=== PATIENT | male | born 1940 | race Caucasian/White ===

== ENCOUNTER 2016-11-28 15:44 | Inpatient (IN) ==
[2016-11-28] MEDS ORDERED: NORCO-5 PO PRN (16:42)
[2016-11-28] MEDS ORDERED: ZOFRAN IV PRN (16:42)
[2016-11-28] MEDS ORDERED: TYLENOL PO PRN (16:42)
[2016-11-28] MEDS: LOVENOX SUBQ SCH (18:04)
[2016-11-28] MEDS: SOLU-MEDROL IV SCH ×2 (18:04→23:08)
[2016-11-28] MEDS: ROCEPHIN 1 GM/NS 1 GM/50 ML IVPB IV SCH (18:04)
[2016-11-28 18:24] LABS: MANUAL DIFF NEEDED? NO
[2016-11-28] MEDS: HUMULIN R SUBQ SCH ×2 (18:32→23:14)
[2016-11-28] MEDS: BENTYL PO SCH (18:32)
[2016-11-28 18:49] LABS: CALCIUM 8.8 mg/dL (8.8-10.2); POTASSIUM 4.5 mmol/L (3.5-5.1)
[2016-11-28] MEDS: ZITHROMAX 500 MG/NS 500 MG/250 ML IVPB IV SCH (18:56)
[2016-11-28 19:03] LABS: BASO% 0.2 % (0.0-0.8); EOS# 0.01 X1000 (0.0-0.7); EOS% 0.2 % (0.0-10.0); HEMATOCRIT 38.4 % (42.0-52.0); HEMOGLOBIN 13.9 g/dL (14.0-18.0); IMM GRAN# 0.03 X1000 (0.0-0.04); IMM GRAN% 0.5 % (0.0-0.5); LYMPH# 1.21 X1000 (1.2-3.4); LYMPH% 18.4 % (20.5-51.1); MCH 32.6 PG (27-31); MCHC 36.2 g/dL (33-37); MCV 90.1 FL (81-99); MONO# 0.57 X1000 (0.11-0.59); MONO% 8.7 % (1.7-9.3); PLT 183 X1000 (130-400); RBC 4.26 XMIL (4.7-6.1)
[2016-11-28] MEDS: SYMBICORT 160/4.5 MICROGM INHALER INH SCH (19:28)
[2016-11-28] MEDS: DUONEB (A & A) INH SCH ×2 (19:28→22:03)
--- NOTE | 2016-11-28 19:57 | HISTORY AND PHYSICAL ---
CHIEF COMPLAINT: Shortness of breath and cough. HISTORY OF PRESENT ILLNESS: Mr. Elroy Candelaria is a 76-year-old gentleman, with history of ischemic heart disease, essential hypertension, obstructive sleep apnea, and gastroesophageal reflux disease, type 2 brf-[id number] diabetes mellitus, anxiety disorder, chronic obstructive pulmonary disease, and history of a radical nephrectomy, who is well known to me. I saw him on 11/23/2016 and treated him for an acute bronchitis in association with an acute chronic obstructive pulmonary disease exacerbation. We treated him with a Z-David, Medrol Dosepak, and Proventil MDI 2 puffs q.6 hours p.r.n. His chest x-ray was clear. Unfortunately, he continues with a persistent nonproductive cough, pleuritic chest pain worse with deep inspiration, paroxysms of cough, and mild shortness of breath. He never filled the prescription for the Proventil MDI. He denies any paroxysmal nocturnal dyspnea, orthopnea, increasing peripheral edema, fever, or chills. PAST MEDICAL HISTORY: As above. PAST SURGICAL HISTORY: Repair of an abdominal aortic aneurysm, laparoscopic cholecystectomy, radical nephrectomy. ALLERGIES: No known drug allergies. FAMILY HISTORY: He is a former smoker. He consumes alcoholic beverages. He is and lives with his . His father was killed in an MVA. His mother had Alzheimer's dementia. MEDICATIONS: Advair 250/50 one puff b.i.d., aspirin 81 mg daily, Bentyl 10 mg t.i.d. with meals, Bystolic 5 mg daily, clonazepam 1 mg b.i.d., Flomax 0.4 mg daily, Imdur 30 mg daily, losartan 50 mg daily, Onglyza 5 mg daily, Proscar 5 mg daily, Victoza 18 mg per 3 meals, 1.8 mg daily, Wellbutrin XR 150 mg daily, Zocor 20 mg at bedtime, Ambien 10 mg at bedtime p.r.n. insomnia. REVIEW OF SYSTEMS: He denies any recent weight gain or weight loss.HEENT: Wears glasses. Cardiovascular: No chest pain, palpitations, or anginal equivalents. Pulmonary: See history of present illness. Gastrointestinal: No reflux, dysphagia, melena, hematochezia, change in bowel habits, or rectal bleeding. Endocrine: No polyuria, no polydipsia. No cold or heat intolerance. Skin: No easy bruisability. : No leakage of urine with coughing or laughing. Neurological: No migraines or seizures. Psychiatric: No history of anxiety disorder. PHYSICAL EXAMINATION: VITAL SIGNS: Blood pressure 102/60, pulse 68, height 76 inches, weight 212 pounds, BMI 25.8. O2 saturation 96% on room air. HEENT: Fundi with arteriolar wall thickening. Pupils equal, round, reactive to light. Extraocular eye movements intact. TMs without bullae. NECK: Supple. No masses, jugular venous distention, or bruits. CARDIOVASCULAR: Regular rate and rhythm. LUNGS: Diffuse end expiratory wheezing with forced expiration. ABDOMEN: Soft, nontender, with active bowel sounds. No hepatosplenomegaly. No abdominal bruits. EXTREMITIES: Without edema. SKIN: No palpable purpura. GENITOURINARY AND RECTAL EXAMINATION: Deferred. NEUROLOGIC: Nonfocal. ASSESSMENT AND PLAN: 1. Acute chronic obstructive pulmonary disease exacerbation with tracheobronchitis. I am going to admit him to [facility]. I will treat him with supplemental O2, DuoNeb nebulizer treatments q.4 hours, IV Solu-Medrol 60 mg IV q.6 hours, and broad-spectrum antibiotics including Rocephin and Zithromax. I will check the PA and lateral chest x-ray. 2. Hypertension. His blood pressure is stable. We will continue him on his current regimen of medications. 3. Type 2 arc-lorrecj-ylfoysvgu diabetes mellitus. We will continue an 1800 calorie ADA diet. Pattern sugars, Humulin R sliding scale, and his regular home medications including Victoza and Onglyza. I do anticipate that his sugars will trend upward on the IV Solu-Medrol and we will use sliding scale insulin on a p.r.n. basis. 4. Given his comorbid conditions, clinical presentation, and failure of outpatient therapy, I believe that admission to the hospital is necessary and reasonable. I anticipate that he will be in the hospital for at least 2 midnights and I will therefore place him in inpatient status. cc: Mariam Mckeon MD
[2016-11-28] MEDS: KLONOPIN PO SCH (23:07)
[2016-11-28] MEDS: ZOCOR PO SCH (23:08)
[2016-11-28] MEDS: AMBIEN PO SCH (23:08)
[2016-11-28] MEDS: FLOMAX PO SCH (23:08)
[2016-11-28] MEDS: ASPIRIN PO SCH (23:08)
[2016-11-29] MEDS: DUONEB (A & A) INH SCH ×6 (03:20→23:33)
[2016-11-29 04:38] LABS: BLOOD TYPE ARTERIAL; SAMPLE BLOOD
[2016-11-29 04:57] LABS: ALLEN TEST YES; BE -6.3 mmoll (-3.0-3.0); DRAW SITE R RADIAL; MODALITY ROOM AIR; O2(CT) 16.9 mL/dL (15.0-23.0); PCO2(98.6) 36 mmHg (35-45); PO2(98.6) 78 mmHg (60-100); SAO2 98.8 % (95.0-100.0); THB 12.5 g/dL (11.5-17.4); pH(98.6) 7.33 (7.35-7.45)
[2016-11-29] MEDS: SOLU-MEDROL IV SCH ×4 (05:53→22:34)
[2016-11-29] MEDS: BENTYL PO SCH ×4 (05:53→17:09)
[2016-11-29] MEDS: PRILOSEC PO SCH ×2 (05:53→06:48)
[2016-11-29] MEDS: HUMULIN R SUBQ SCH ×4 (07:10→22:34)
[2016-11-29] MEDS: SYMBICORT 160/4.5 MICROGM INHALER INH SCH ×2 (07:19→19:10)
--- NOTE | 2016-11-29 07:40 | Diag Imaging Result Doc PS360 ---
CHEST-2 VIEWS - 11/28/2016 INDICATION: COPD exacerbation TECHNIQUE: COMPARISON: 11/23/2016 FINDINGS: Stable calcified granulomas in the right midlung and hilum. No focal infiltrates, pneumothorax, or pleural effusion. Stable hyperexpanded lungs compatible with COPD. Heart size remains normal. IMPRESSION: COPD. No acute disease or change from prior. Electronically signed by Noah Cisneros 11/29/2016 7:38 AM
[2016-11-29] MEDS ORDERED: NS 1,000 ML IV SCH (08:12)
[2016-11-29] MEDS ORDERED: BENTYL PO SCH (08:15)
[2016-11-29] MEDS ORDERED: BYSTOLIC PO SCH (09:00)
[2016-11-29] MEDS ORDERED: IMDUR PO SCH (09:00)
[2016-11-29] MEDS ORDERED: ULORIC PO SCH (09:00)
[2016-11-29] MEDS ORDERED: PROSCAR PO SCH (09:00)
[2016-11-29] MEDS ORDERED: ZOLOFT PO SCH (09:00)
[2016-11-29] MEDS ORDERED: ONGLYZA PO SCH (09:00)
--- NOTE | 2016-11-29 10:03 | PROGRESS NOTE ---
DATE: 11/29/2016 HISTORY: Mr. Candelaria was admitted to [facility] with an acute COPD exacerbation. His chest x-ray demonstrated chronic COPD type changes without evidence of effusions or infiltrates. We started him on supplemental O2, DuoNeb nebulizer treatments, and IV Solu-Medrol, as well as broad-spectrum IV antibiotics including Rocephin and Zithromax. Clinically, he is doing better. He is breathing comfortably. His O2 saturations are ranging from 94-99% on room air. His cough is less prominent. His cough is still nonproductive. Arterial blood gases demonstrated a pH of 7.33, pCO2 36, PO2 78, and an O2 saturation of 98.8%. Blood pressure is stable. Systolic blood pressures range from 129-140, whereas his diastolic blood pressures have ranged from 61-64. His blood sugars are fluctuating on the IV steroids. PHYSICAL EXAMINATION: Vital Signs: Temperature 97.5 degrees, pulse 88, respirations 18, BP 140/64. CV: Regular rate and rhythm. Lungs: Distant breath sounds with increased period of expiration. There are scattered end expiratory wheezes throughout all lung poe but his lungs sound much more clear today as compared to yesterday. Abdomen: Soft, nontender, with active bowel sounds. ASSESSMENT AND PLAN: 1. Acute chronic obstructive pulmonary disease exacerbation. We will continue intravenous Solu- Medrol, DuoNeb nebulizer treatments, Symbicort 160/4.5 two puffs twice a day, and broad- spectrum intravenous antibiotics. We will monitor him and his response to medical therapy. 2. Type 2 mlm-jksyioa-turviases diabetes mellitus. Blood sugars will fluctuate on the intravenous steroids. We will continue an 1800 calorie, ADA diet, his regular home medications, Humulin R sliding scale, and pattern sugars. 3. Hypertension. His blood pressure is stable. We will continue him on his current regimen of medications. cc: Mariam Mckeon MD
[2016-11-29] MEDS: KLONOPIN PO SCH ×2 (10:25→22:34)
[2016-11-29] MEDS: FLOMAX PO SCH ×2 (10:28→22:33)
[2016-11-29] MEDS: LOVENOX SUBQ SCH (17:10)
[2016-11-29] MEDS: ROCEPHIN 1 GM/NS 1 GM/50 ML IVPB IV SCH (17:12)
[2016-11-29] MEDS: ZITHROMAX 500 MG/NS 500 MG/250 ML IVPB IV SCH (18:34)
[2016-11-29] MEDS: ZOCOR PO SCH (22:33)
[2016-11-29] MEDS: ASPIRIN PO SCH (22:33)
[2016-11-29] MEDS: AMBIEN PO SCH (22:33)
[2016-11-30] MEDS: DUONEB (A & A) INH SCH ×2 (02:30→08:27)
[2016-11-30 03:02] VITALS: BP 152/64
[2016-11-30] MEDS: SOLU-MEDROL IV SCH (04:35)
[2016-11-30] MEDS: BENTYL PO SCH ×2 (05:49→06:20)
[2016-11-30] MEDS: PRILOSEC PO SCH ×2 (05:50→06:21)
[2016-11-30] MEDS: HUMULIN R SUBQ SCH ×2 (06:21→06:22)
[2016-11-30 07:18] LABS: CALCIUM 8.5 mg/dL (8.8-10.2); POTASSIUM 4.7 mmol/L (3.5-5.1)
[2016-11-30] MEDS: SYMBICORT 160/4.5 MICROGM INHALER INH SCH (08:28)
[2016-11-30] MEDS ORDERED: ZITHROMAX PO SCH (09:00)
== END 2016-11-30 09:55 | disposition home or self-care (01) ==
LOC: DIRADM 15:44 → 4N 15:45
PROVIDERS: ADMIT Internal Medicine; ATTEND Internal Medicine

== ENCOUNTER 2018-07-11 15:30 | Inpatient (IN) ==
--- NOTE | 2018-07-11 16:55 | Diag Imaging Result Doc PS360 ---
EXAM: CHEST-2 VIEWS INDICATION: cough/sob TECHNIQUE: 2 views COMPARISON: 11/28/2016 FINDINGS: There is moderate to large size left pleural effusion with adjacent atelectasis and/or infiltrate. There is evidence of prior granulomatous disease, stable. No airspace consolidation is identified on the right. Cardiac silhouette is essentially unremarkable. IMPRESSION: Moderate to large size left pleural effusion with adjacent atelectasis and/or infiltrate. Electronically signed by Moises Donovan 07/11/2018 4:53 PM
[2018-07-11] MEDS ORDERED: LEVAQUIN 750 MG/D5W 750 MG/150 ML IVPB IV ONE (19:28)
[2018-07-11 19:52] LABS: BASO# 0.02 X1000 (0.0-0.2); BASO% 0.3 % (0.0-0.8); EOS# 0.19 X1000 (0.0-0.7); EOS% 2.7 % (0.0-10.0); HEMATOCRIT 39.7 % (42.0-52.0); HEMOGLOBIN 13.9 g/dL (14.0-18.0); LYMPH# 1.86 X1000 (1.2-3.4); LYMPH% 26.8 % (20.5-51.1); MCH 32.2 PG (27-31); MCV 91.9 FL (81-99); MONO# 0.49 X1000 (0.11-0.59); MONO% 7.1 % (1.7-9.3); MPV 9.3 FL (7.4-10.4); NEUT# 4.37 X1000 (1.4-6.5); NEUT% 63.1 % (42.2-75.2); PLT 246 X1000 (130-400); RBC 4.32 XMIL (4.7-6.1); RDW 12.2 % (11.5-14.5); WBC 6.93 X1000 (4.8-10.8)
[2018-07-11 20:02] LABS: INR 0.9; PROTIME 12.9 Seconds (11.0-16.0)
[2018-07-11 20:11] LABS: ALB/GLOB RATIO 1.3; ALBUMIN 3.9 g/dL (3.5-5.0); CALCIUM 9.1 mg/dL (8.8-10.2); CREATININE 1.7 mg/dL (0.7-1.2); MAGNESIUM 2.1 mg/dL (1.5-2.7); POTASSIUM 4.4 mmol/L (3.5-5.1); TOTAL BILIRUBIN 0.48 mg/dL (0.20-1.00); TOTAL PROTEIN 6.9 g/dL (6.3-8.3)
--- NOTE | 2018-07-11 22:05 | PROVIDER DOCUMENTATION ---
This chart was entered by Jose Daniel Mason Scribe, acting as scribe for Price Newton MD. HPI-Respiratory General - General Chief Complaint: Cough Stated Complaint: TIGHTNESS IN CHEST,SOB,COUGHING Time Seen by Provider: 07/11/18 19:15 Source: patient Allergies/Adverse Reactions: Patient Allergies Allergy/AdvReac Type Severity Reaction Status Date / Time Iodinated Contrast- Oral and Allergy Unknown Verified 07/11/18 18:56 IV Dye [IV Dye] Home Medications: Home Medication List Medication Instructions Recorded Confirmed Last Taken Type Aspirin 81 mg PO HS 02/13/12 11/28/16 11/27/16 18:00 History Finasteride 5 mg PO QHS 02/13/12 11/28/16 11/27/16 06:00 History Saxagliptin [Onglyza] 5 mg PO DAILY 02/13/12 11/28/16 11/28/16 09:00 History Simvastatin 20 mg PO QHS 02/13/12 11/28/16 11/28/16 09:00 History Tamsulosin HCl [Flomax] 0.4 mg PO QHS 02/13/12 11/28/16 11/27/16 18:00 History Clonazepam 1 mg PO DAILY 10/16/14 11/28/16 11/28/16 09:00 History Ergocalciferol (Vitamin D2) 50,000 unit PO DIRECTED 10/16/14 11/28/16 09:00 History [Vitamin D] Fluticasone 50 Mcg Nasal [place] 1 - 2 spray MITA DAILY 10/16/14 02/27/15 02/27/15 09:00 History [Flonase] Sertraline [Zoloft] 50 mg PO DAILY 10/16/14 11/28/16 11/28/16 09:00 History Zolpidem Tartrate [Ambien] 10 mg PO HS 10/16/14 11/28/16 11/27/16 18:00 History Isosorbide Mononitrate E.r. [Imdur] 30 mg PO DAILY #0 tablet 03/02/15 11/28/16 11/28/16 09:00 Rx Nebivolol [Bystolic] 5 mg PO DAILY #0 tablet 03/02/15 11/28/16 11/28/16 09:00 Rx Omeprazole [Prilosec] 20 mg PO DAILY@07 #0 capsule 03/02/15 11/28/16 11/28/16 09 :00 Rx Amlodipine Besylate 5 mg PO BID 11/28/16 11/28/16 11/28/16 09:00 History Dicyclomine HCl 10 mg PO TID 11/28/16 11/28/16 11/28/16 History Febuxostat [Uloric] 80 mg PO DAILY 11/28/16 11/28/16 11/28/16 09:00 History Losartan Potassium 50 mg PO DAILY 11/28/16 11/28/16 11/28/16 09:00 History Nebivolol [Bystolic] 5 mg PO 11/28/16 11/28/16 09:00 History Budesonide/Formoterol Inhaler 2 puff INH RTBID #1 inhaler 11/30/16 Unknown Rx [Symbicort 160/4.5 Microgm Inhaler] - History of Present Illness-Resp Nature of Presenting Problem: Pt is a 78 y/o sent to the ED from his PCP for SOB. He c/o left chest pain. Pt reports he is unable to walk across the room with out losing his breath. Pt reports fall last week. Quality of Pain: reports: aching Severity in ED: reports: moderate Onset/Duration: reports: 5 days ago Timing: reports: still present Exposure: reports: unknown cause Cough Quality/Degree: reports: dry cough Episode Frequency: no prior episodes Current Respiratory Medication Therapy: Initiated none Modifying Factors: improves with: exertion (worsens) Associated Symptoms: reports: chest pain/soreness, cough, hurts to breathe, shortness of breath. denies: fever/chills, heart racing Similar Symptoms Previously?: No Recently seen or treated by another doctor?: No Review of Systems - Adult - REVIEW OF SYSTEMS - ADULT Constitutional: denies: chills, fever Eyes: reports: no symptoms reported Ears, Nose, Mouth & Throat: denies: ear pain, throat pain Cardiovascular: reports: chest pain. denies: edema, palpitations Respiratory: reports: cough, shortness of breath. denies: wheezing Gastrointestinal: denies: abdominal pain, nausea, vomiting Genitourinary: reports: no symptoms reported Musculoskeletal: denies: back pain, neck pain Integumentary: reports: no symptoms reported Neurological: denies: dizziness/vertigo, headache/migraines Psychiatric: reports: no symptoms reported Endocrine: reports: no symptoms reported Hematologic/Lymphatic: reports: no symptoms reported Allergic/Immunologic: reports: no symptoms reported All Other Systems: Reviewed and Negative Past History - Adult - PAST MEDICAL HISTORY-ADULT Review of Records: reports: Old Records Reviewed, Nursing Assessment Review, Medications Reviewed Major Childhood Illnesses: reports: denies history Cardiovascular: reports: cardiac disease, aortic disease, CAD, HTN, hyperlipidemia, PA, PAD Respiratory: reports: denies history Gastrointestinal: reports: GERD, obstruction Obstetrical/Gynecological: reports: fibroids Genitourinary: reports: dialysis, kidney disease Musculoskeletal: reports: arthritis Neurological: reports: CVA, stroke deficits Endocrine/Immune: reports: anemia, thyroid disorder Other Conditions: reports: denies history - PRIOR SURGERIES/PROCEDURES Surgical/Procedure History: reports: CABG, other (AAA repair) - IMMUNIZATION STATUS Childhood Immunizations: See Nurse Assessment Flu Vaccine: See Nurse Assessment - FAMILY HISTORY Family History: reviewed, not pertinent - SOCIAL HISTORY Smoking: non-smoker, quit greater than 1 year Alcohol Use Frequency: never Living Situation: family Physical Exam-General - PHYSICAL EXAM-ADULT Initial Vital Signs Reviewed: Yes - CONSTITUTIONAL General Appearance: appears well, alert, no apparent distress - EYES Eyes: PERRL/EOMI, pink conjunctivae - HEAD, EARS, NOSE, MOUTH & THROAT HENMT: moist mucous membranes, normal ENT inspection, pharynx normal - NECK Neck: non-tender, full range of motion, supple, normal inspection - RESPIRATORY Respiratory: decreased breath sounds (on left). negative: chest non-tender ( left) - CARDIOVASCULAR Cardiovascular: normal peripheral pulses, regular rate, rhythm - GASTROINTESTINAL (ABDOMEN) Abdominal Exam: normal bowel sounds, non tender, soft - MUSCULOSKELETAL Back Exam: normal inspection, no CVA tenderness, no vertebral tenderness Extremity: normal range of motion, non-tender, normal gait, normal inspection - SKIN Integumentary: normal color, normal turgor, warm/dry - NEUROLOGIC Neurologic: grossly normal, no motor/sensory deficits - PSYCHIATRIC Psych/Mental Status: normal mood/affect, normal thought content, normal thought process, oriented x 3 Progress - PLAN OF CARE/RESULTS Progress/Plan/Lab Results: Vital Signs - 8 hr 07/11/18 15:49 07/11/18 19:29 07/11/18 20:18 Temperature 97.7 F Pulse Rate 68 55 L 56 L Respiratory Rate 18 24 16 Blood Pressure 120/67 137/77 O2 Sat by Pulse Oximetry 99 93 L 92 L 07/11/18 20:20 Temperature Pulse Rate 57 L Respiratory Rate 21 Blood Pressure O2 Sat by Pulse Oximetry 91 L 07/11/18 18:55 Influenza Screen - Final Nasopharyngeal Laboratory Results - last 24 hr 07/11/18 07/11/18 07/11/18 19:10 19:10 19:10 WBC 6.93 RBC 4.32 L Hgb 13.9 L Hct 39.7 L MCV 91.9 MCH 32.2 H MCHC 35.0 RDW Std Deviation 12.2 Plt Count 246 MPV 9.3 Immature Gran % (Auto) 0.0 Neut % (Auto) 63.1 Lymph % (Auto) 26.8 Perkins % (Auto) 7.1 Eos % (Auto) 2.7 Baso % (Auto) 0.3 Immature Gran # (Auto) 0.00 Neut # (Auto) 4.37 Lymph # (Auto) 1.86 Perkins # (Auto) 0.49 Eos # (Auto) 0.19 Baso # (Auto) 0.02 PT INR Sodium 136 Potassium 4.4 Chloride 98 Carbon Dioxide 24 L Anion Gap 14 BUN 18 Creatinine 1.7 H Estimated GFR/1.73 m2 39 BUN/Creatinine Ratio 11 Glucose 149 H Calculated Osmolality 277 Calcium 9.1 Magnesium 2.1 Total Bilirubin 0.48 AST 18 ALT 25 Alkaline Phosphatase 53 Pgv-U-Elaflupierj Pept Total Protein 6.9 Albumin 3.9 Globulin 3.0 Albumin/Globulin Ratio 1.3 Plasma Lactate 1.0 07/11/18 07/11/18 19:10 19:10 WBC RBC Hgb Hct MCV MCH MCHC RDW Std Deviation Plt Count MPV Immature Gran % (Auto) Neut % (Auto) Lymph % (Auto) Perkins % (Auto) Eos % (Auto) Baso % (Auto) Immature Gran # (Auto) Neut # (Auto) Lymph # (Auto) Perkins # (Auto) Eos # (Auto) Baso # (Auto) PT 12.9 INR 0.90 Sodium Potassium Chloride Carbon Dioxide Anion Gap BUN Creatinine Estimated GFR/1.73 m2 BUN/Creatinine Ratio Glucose Calculated Osmolality Calcium Magnesium Total Bilirubin AST ALT Alkaline Phosphatase [id number]-Myuaewnqera Pept 171 Total Protein Albumin Globulin Albumin/Globulin Ratio Plasma Lactate Orders Category Date Time Status Saline Loc NOW Care 07/11/18 17:29 Active CHEST-2 VIEWS [RAD] Stat Exams 07/11/18 15:53 Completed BLOOD CULTURE [BLDCUL] Stat Lab 07/11/18 19:10 Results CBC WITH ELECTRONIC DIFF [HEME] Stat Lab 07/11/18 19:10 Completed COMPREHENSIVE METABOLIC PANEL [CHEM] Stat Lab 07/11/18 19:10 Completed INFLUENZA SCREEN A/B Stat Lab 07/11/18 18:55 Completed LACTATE, PLASMA [CHEM] Stat Lab 07/11/18 19:10 Completed MAGNESIUM [CHEM] Stat Lab 07/11/18 19:10 Completed PRO B-NATRIURETIC PEPTIDE Stat Lab 07/11/18 19:10 Completed PROTIME WITH INR [COAG] Stat Lab 07/11/18 19:10 Completed URINALYSIS W/POSS RFLX CULT [URINALYSIS] Stat Lab 07/11/18 17:28 Uncollected Levofloxacin 750 mg/D5w [Levaquin 750 mg/D5w] Med 07/11/18 19:28 Discontinued 750 mg in 150 ml IV NOW EKG [EKG] Stat Ther 07/11/18 15:53 Ordered Result Diagrams: 07/11/18 19:10 07/11/18 19:10 - EKG 1 Time of EKG reading by physician:: 01:55 EKG Read and Signed by:: Maynor Galvan Rate: 61 Rhythm: NSSR Comments: NAD, low voltage - XRAY 1 XRAY Study: Chest Impression: Abnormal (INDICATION: cough/sob TECHNIQUE: 2 views COMPARISON: 11/28/2016 FINDINGS: There is moderate to large size left pleural effusion with adjacent atelectasis and/or infiltrate. There is evidence of prior granulomatous disease, stable. No airspace consolidation is identified on the right. Cardiac silhouette is essentially unremarkable. IMPRESSION: Moderate to large size left pleural effusion with adjacent atelectasis and/or infiltrate. Electronically signed by Moises Donovan 07/11/2018 4:53 PM) - CONSULTS/PCP/HOSPITALIST Notification #1 *Consult/PCP/Hospitalist*: Hosptialist- Dr Jorge Time Discussed: 21:36 Reason/Comments: admission Consult Disposition: Will see in ED (accepts) Departure - Departure Date of Disposition Decision: 07/11/18 Time of Disposition Decision: 21:36 DIAGNOSIS: Pleural effusion Disposition: ADMITTED INPATIENT 09 Certified Medical Emergency: Emergent Condition: Stable Referrals and Follow-Ups: Bisi Graham MD [Primary Care Provider] - - Critical Care Note This patient required my direct & personal management of CC.: No Attestation - Physician/ CHIQUITA Attestation Patient care was provided by Advanced Practice Provider:: No The physician spent face to face time with patient:: Yes Advanced Practice Provider documentation review:: Supervising physician onsite and consulted in the evaluation and care of this patient. The physician did have a face to face encounter with the patient. This chart was documented by the indicated scribe, (Jose Daniel Mason Scribe) and accurately reflects the services I performed and decisions made by me, Price Newton MD, as attested by the provider's signature.
[2018-07-11 22:50] LABS: URINE SOURCE CLEAN CATCH
[2018-07-11 22:53] LABS: BILIRUBIN URINE NEGATIVE (NEGATIVE); BLOOD URINE NEGATIVE (NEGATIVE); COLOR YELLOW; GLUCOSE URINE NEGATIVE (NEGATIVE); KETONE URINE NEGATIVE (NEGATIVE); LEUKOCYTES URINE NEGATIVE (NEGATIVE); NITRITE URINE NEGATIVE (NEGATIVE); PH URINE 6.5; PROTEIN URINE NEGATIVE (NEGATIVE); SP GRAVITY URINE 1.008; TURBIDITY URINE CLEAR (CLEAR); UR EPITHELIAL CELLS <10 /HPF (<10); URINE BACTERIA NEGATIVE /HPF; URINE RBC <10 /HPF (<10); URINE WBC <10 /HPF (<10); UROBILINOGEN URINE NORMAL (NORMAL)
[2018-07-12] MEDS ORDERED: AMBIEN PO PRN (00:19)
[2018-07-12] MEDS ORDERED: TYLENOL PO PRN (00:26)
[2018-07-12] MEDS ORDERED: ZOFRAN IV PRN (00:26)
[2018-07-12] MEDS ORDERED: MORPHINE IV PRN (00:30)
[2018-07-12] MEDS: LASIX IV SCH ×2 (01:10→15:34)
[2018-07-12 02:30] LABS: CK INDEX 7.1 (0.0-2.5); CK-MB 21.62 ng/mL (0.0-5.0)
--- NOTE | 2018-07-12 03:18 | HISTORY AND PHYSICAL ---
CHIEF COMPLAINT: Shortness of breath. HISTORY OF PRESENT ILLNESS: This is a very pleasant gentleman who has a history of CAD, hypertension, diabetes, and chronic renal failure related to one kidney, who presents with worsening shortness of breath for the last week or so. He does report he fell about a week or so ago and he had sustained some injury to his left chest. He has had some soreness in that area, although no obvious bruising. He does take a baby aspirin. He reports unable to walk across the room without getting short of breath. His workup in the ER really was not very remarkable, interestingly enough. We did not do any cardiac enzymes. In any case, he was evaluated in the ER and found to have a large left pleural effusion and he was admitted for workup of such. He reports no history of congestive heart failure. He does have chronic renal failure, again attributed to only one kidney is functional. He has had an AAA repair too. He denies sick contacts. No fevers. No chills. No cough but, again, the shortness of breath, especially shortness of breath on exertion. PAST MEDICAL HISTORY: 1. CAD, status post PCI. 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 2. Hypertension. 3. Obstructive sleep apnea. 4. Type 2 diabetes, I think non-insulin dependent. 5. COPD by report. PAST SURGICAL HISTORY: 1. He had a PCI which was, I think, 20 years ago, maybe 1998. 2. AAA repair. 3. Laparoscopic cholecystectomy. 4. It is reported that he had a radical nephrectomy but he states that he did not have a radical nephrectomy, that they decided not to do surgery on his kidney. 5. He has had bilateral iliac stents. FAMILY HISTORY: Mother at 93. Father at 49 of an MVA. ALLERGIES: To iodinated contrast, although I think it is more just because of his renal insufficiency. SOCIAL HISTORY: No tobacco. Occasional alcohol. 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 He is . REVIEW OF SYSTEMS: No weight loss, no appetite change, no night sweats. Otherwise negative x10 point review of systems. PHYSICAL EXAMINATION: VITAL SIGNS: Blood pressure 162/69, heart rate 67, respiratory rate 19, temperature 98 degrees, 96% on room air. GENERAL: A well-developed male, in no acute distress. HEENT: Head Examination: Normocephalic and atraumatic. Eye Examination: Pupils equal, round, reactive to light. Extraocular movements were intact. Ears, Nose, and Throat Examination: He had moist mucous membranes. NECK: Supple. CARDIOVASCULAR: Regular rate and rhythm. No murmurs, gallops, or rubs. GI: Soft, nontender, nondistended. Bowel sounds were positive. PULMONARY EXAMINATION: He did have diminished breath sounds at the left base, some egophony. No wheezes, no rales. NEUROLOGIC: Examination was nonfocal. Cranial nerves 2-12 were grossly intact. MUSCULOSKELETAL: Examination was 4-5 in all 4 extremities. SKIN EXAMINATION: Clean, dry, intact. LABORATORY DATA: Hemoglobin and hematocrit were mildly low at 13 and 39. Coagulations were okay. Creatinine 1.7 but reportedly he usually stays around 2. His creatinine has been up to 2 in 2017 so this is actually a little bit better. Chest x-ray showed moderate to large pleural effusion. ASSESSMENT AND PLAN: This is a 78-year-old male with chest pain and pleural effusion, unclear source. 1. Left pleural effusion. Certainly could be cardiac, related to heart failure, although typically bilateral and typically on the right side. Other etiologies are parapneumonic, neoplastic, and then perhaps traumatic. He did fall. He is on low-dose aspirin. It certainly possibly could be a hemothorax. We will pursue CT without contrast and ultrasound- guided thoracentesis to evaluate for etiology and then go from there. I will initiate some diuretics, although it does not look like he usually takes any diuretics, but his kidney function is actually relatively intact. His dyspnea on exertion does make us a little bit concerned over congestive heart failure but it could just be related to his pleural effusion. 2. Coronary artery disease with chest pain but he has got a pleural effusion. We will get an echocardiogram, serial enzymes, and follow clinically. He seems to be doing okay. 3. Diabetes. We will follow his blood sugars. Check an A1c. Continue sliding scale and follow closely. 4. Hypertension. We will resume his home medications once they have been verified. 5. Disposition, pending his clinical status. cc: MD Bisi Rollins MD
[2018-07-12] MEDS: HUMULIN R SUBQ SCH ×4 (06:29→22:18)
[2018-07-12] MEDS: PRILOSEC PO SCH (06:29)
--- NOTE | 2018-07-12 07:57 | EKG Report ---
Test Performed on : 07/11/2018 3:55:42 PM Test Reason : cough, SOB Blood Pressure : / mmHG Vent. Rate : 061 BPM Atrial Rate : 061 BPM P-R Int : 192 ms QRS Dur : 084 ms QT Int : 404 ms P-R-T Axes : 027 037 056 degrees QTc Int : 406 ms Normal sinus rhythm. Low voltage QRS Borderline ECG When compared with ECG of 06-JUL-2012 21:12, No significant change was found Unconfirmed Result
--- NOTE | 2018-07-12 08:52 | Diag Imaging Result Doc PS360 ---
EXAM: CHEST-2 VIEWS INDICATION: POST LEFT THORA TECHNIQUE: 2 views COMPARISON: 07/11/2018 FINDINGS: There is no evidence of pneumothorax status post left thoracentesis. There has been a substantial decrease in size of the left pleural fluid collection as a result of the thoracentesis. However, there is still a small to moderate amount of pleural fluid left at the left lung base even after 1500 mL was aspirated. There has been improvement of the atelectasis at the left lung base. No new consolidation is identified. Cardiac silhouette is stable. IMPRESSION: No evidence of pneumothorax status post left thoracentesis by plain radiograph. Electronically signed by Moises Donovan 07/12/2018 8:50 AM
--- NOTE | 2018-07-12 09:00 | Diag Imaging Result Doc PS360 ---
EXAM: US THORACENTESIS W/IMAGE GUIDE INDICATION: pleural effusion TECHNIQUE: COMPARISON: None. FINDINGS: Risks, benefits, and alternatives were discussed with the patient and informed consent was obtained. The patient was prepped and draped in sterile fashion and local anesthesia was achieved with 1% lidocaine solution. Using ultrasound guidance, a large bore catheter was inserted into the left pleural space and 1500 mL of serosanguineous fluid was aspirated. There were no known complications. A chest radiograph is to follow. IMPRESSION: Technically successful ultrasound-guided left thoracentesis. Electronically signed by Moises Donovan 07/12/2018 8:58 AM
--- NOTE | 2018-07-12 09:13 | Diag Imaging Result Doc PS360 ---
EXAM: CT THORAX W/O CONTRAST - 07/12/2018 HISTORY: lung mass TECHNIQUE: CT thorax without contrast. No contrast administered Of the referring provider. COMPARISON: Prior chest radiographs of 07/12/2018 FINDINGS: There is a small left pleural effusion. There is partial atelectasis of the left lower lobe. There is no pneumothorax identified. There is no discrete pulmonary mass lesion identified in the left. There are a couple of calcified granulomas on the right and there are calcified right hilar and mediastinal lymph nodes from old granulomatous disease. There are a few nonspecific small nodular opacities on the right which are not definitely calcified. There is a 2.2 x 3.1 cm cavitary lesion with mildly thickened marie at the posterior right base. There are a few mildly enlarged mediastinal lymph nodes. There are atherosclerotic calcifications noted. IMPRESSION: Small left pleural effusion. Partial atelectasis of left lower lobe. No pulmonary mass lesion identified on the left. 2.2 x 3.1 cm mildly thick-walled cavitary lesion at posterior right base. This could be inflammatory or malignant. A few mildly enlarged mediastinal lymph nodes. This exam was performed using automated exposure control, adjustment of mA or kV according to patient size, and/or use of iterative reconstruction technique. Electronically signed by Yousuf Cheung 07/12/2018 9:10 AM
[2018-07-12 10:13] LABS: BASO# 0.02 X1000 (0.0-0.2); BASO% 0.3 % (0.0-0.8); EOS# 0.15 X1000 (0.0-0.7); EOS% 2.4 % (0.0-10.0); HEMATOCRIT 38.1 % (42.0-52.0); HEMOGLOBIN 13.4 g/dL (14.0-18.0); LYMPH# 1.39 X1000 (1.2-3.4); LYMPH% 22.1 % (20.5-51.1); MCH 32.5 PG (27-31); MCHC 35.2 g/dL (33-37); MCV 92.5 FL (81-99); MONO# 0.49 X1000 (0.11-0.59); MONO% 7.8 % (1.7-9.3); MPV 8.9 FL (7.4-10.4); NEUT# 4.24 X1000 (1.4-6.5); NEUT% 67.4 % (42.2-75.2); PLT 220 X1000 (130-400); RBC 4.12 XMIL (4.7-6.1); RDW 12.1 % (11.5-14.5); WBC 6.29 X1000 (4.8-10.8)
[2018-07-12 10:45] LABS: BODY FLUID SOURCE PLEURAL FLUID; SPECIMEN PLEURAL FLUID; WBC BF 1122 /cumm
[2018-07-12 10:46] LABS: MONOS 73 %; POLYS 27 %
[2018-07-12 10:49] LABS: AMYLASE BODY FLUID 23 U/L; GLUCOSE BODY FLUID 161 mg/dL; LDH BODY FLUID 196 U/L; TOTAL PROT BODY FLUID 4.1 g/dL
[2018-07-12 10:59] LABS: CALCIUM 8.8 mg/dL (8.8-10.2); CREATININE 1.9 mg/dL (0.7-1.2); POTASSIUM 4.2 mmol/L (3.5-5.1)
[2018-07-12 11:14] LABS: CK INDEX 6.7 (0.0-2.5); CK-MB 18.38 ng/mL (0.0-5.0)
[2018-07-12] MEDS: DUONEB (A & A) INH PRN ×2 (11:38→16:37)
--- NOTE | 2018-07-12 14:03 | ECHO REPORT ---
ORDER DATE: 07/12/2018 ECHOCARDIOGRAPHIC MEASUREMENTS: 1. Interventricular septum 1.3. 2. Left ventricular posterior wall 1.0. 3. Diastolic diameter 4.2. 4. Left ventricular systolic diameter 2.9. 5. Left atrium 4.0. 6. Aorta 3.7. SUMMARY: 1. Technically suboptimal study. Very poor acoustic window. Pulmonic valve not well visualized. 2. Aortic valve leaflets are trileaflet. Mitral valve was normal. Tricuspid valve not well visualized. 3. By Doppler studies, there is no aortic stenosis or regurgitation. There is trace mitral regurgitation. Mild tricuspid regurgitation. Peak velocity across the tricuspid valve was 2.3 m/sec. Definity was used to assess left ventricular systolic function. Normal left ventricular cavity size. Estimated ejection fraction of 70%. There is left ventricular hypertrophy. 4. There is no pericardial effusion or obvious intracardiac mass or thrombus seen. cc: MD Rock Goddard MD
--- NOTE | 2018-07-12 14:41 | PROGRESS NOTE ---
DATE: 07/12/2018 OVERNIGHT EVENTS: Mr. Candelaria was admitted for respiratory distress and was found to have left- sided pleural effusion. He underwent ultrasound-guided thoracentesis, which he tolerated well. Post thoracentesis x-ray is pending. SUBJECTIVE: He denies chest pain or shortness of breath. He does complain, however, of pain at the thoracentesis site which gets worse when he takes a deep breath; however, he is feeling better in general after thoracentesis and removal of fluid during which 1.5 L was removed. We discussed about possible differential diagnosis of his pleural fluid, and I answered all of his questions. VITAL SIGNS: Temperature 98.2, pulse 66 per minute, blood pressure 130/80. He is saturating 95% on 2 L nasal cannula. PHYSICAL EXAMINATION: General: He does not appear in any acute distress. Oral cavity: He has a geographic tongue. Lungs: Air entry bilaterally equal with decrease in the left base with some inspiratory crackles, otherwise, equal bilaterally. No wheeze or rhonchi. S1, S2 normal. No murmur, rub, or gallop. Abdomen is soft. He does have a subcutaneous mass in the epigastric region which was fixed, about 5 cm diameter horizontally. He said he had that for many years now. No lower extremity edema. Alert and oriented x3. LABORATORY DATA: Labs suggestive of hyponatremia, hypochloremia, chronic kidney disease stage 3. Initial troponins were elevated to 0.147. The next one was 0.142. Microbiology: Pleural fluid results are pending. ASSESSMENT AND PLAN: 1. Acute hypoxic respiratory failure likely because of left-sided pleural effusion. Continue oxygen through nasal cannula to maintain saturation more than 94%. 2. Acute left-sided pleural effusion s/p thoracentesis and 1.5 L serosanguinous fluid removal. Follow up xray to rule out pneumothorax. Differential includes exudative pleural effusion because of infection, malignancy versus pleural effusion related to heart failure or chronic kidney disease. Await pleural fluid analysis results and echocardiogram. Pulmonology on board. 3. History of coronary artery disease status post stent in 1998. Follow up with echocardiogram to rule out congestive heart failure. He did have slightly elevated troponins which is, however, showing flat trend. An EKG did not have any new ST-T abnormality. Continue his home aspirin. It is not listed to be taking statin though. 4. History of kpg-wksxtug-sqdoxbbxr diabetes mellitus. Continue sliding scale insulin. 5. Essential hypertension. Resume home amlodipine. 6. History of gout. Continue home febuxostat. 7. History of benign prostatic hypertrophy. Continue home finasteride and tamsulosin. 8. Others: Continue home sertraline for depression. Lidocaine patch for topical pain relief at the site of thoracentesis. DISPOSITION: The patient remains in the hospital as we await pleural fluid results. Plan of care was discussed with the patient and his who is a surrogate decision maker at bedside. All of their questions have been answered satisfactorily. cc: Toy Collins MD MTDD
[2018-07-12] MEDS: LIDODERM TOP SCH (15:34)
--- NOTE | 2018-07-12 15:45 | Diag Imaging Result Doc PS360 ---
EXAM: CHEST-2 VIEWS 07/12/2018 HISTORY: Rule out pneumothorax post thoracentesis TECHNIQUE: AP portable at 1512 COMMENT: There is a fairly large amount of pleural fluid on the left. There is worsened atelectasis or pneumonia in the left lower lobe compared to 05/11/2009. IMPRESSION: Worsening left pleural effusion. Atelectasis versus pneumonia left lower lobe. No evidence of pneumothorax. Electronically signed by Ilir Echevarria 07/12/2018 3:43 PM
[2018-07-12] MEDS: PROSCAR PO SCH (22:18)
[2018-07-12] MEDS: ASPIRIN PO SCH (22:18)
[2018-07-12] MEDS: FLOMAX PO SCH (22:18)
--- NOTE | 2018-07-13 02:04 | CONSULTATION ---
DATE OF CONSULTATION: 07/12/2018 REQUESTING PROVIDER: Rock Jorge MD. REASON FOR CONSULTATION: Pulmonary effusion. HISTORY OF PRESENT ILLNESS: This is a 78-year-old male with a medical history of ischemic heart disease, essential hypertension, obstructive sleep apnea, gastroesophageal reflux disease, type 2 diabetes mellitus, anxiety, chronic obstructive pulmonary disease, benign prostatic hyperplasia, chronic renal failure and abdominal aortic aneurysm. He presented to the ER yesterday afternoon with shortness of breath and severe left chest pain. Chest x-ray in the ER revealed [id number] size left pleural effusion with adjacent atelectasis , plus or minus infiltrate. Labs were nonsignificant. He has been admitted to the medical floor for further evaluation and management. He underwent ultrasound-guided thoracentesis this morning with 1.5 L of serosanguineous fluid aspirated. At the time of my examination he is on room air. He still reports shortness of breath and severe left chest pain radiating from the left armpit down to left upper quadrant. He states he is slowly getting better. The chest pain is worse with deep breathing, cough and position change. He has no cough, fever, night sweats, chills, unintentional weight loss, nausea, diarrhea or constipation. PAST MEDICAL/SURGICAL HISTORY: 1. Ischemic heart disease status post PCI. 2. Essential hypertension. 3. Obstructive sleep apnea. 4. Gastroesophageal reflux disease. 5. Type 2 diabetes mellitus non-insulin dependent. 6. Anxiety disorder. 7. Chronic obstructive pulmonary disease, but the patient denying it.l 8. Benign prostatic hyperplasia. 9. Chronic renal failure. The patient reports the right side kidney is not functional at all, but it is not removed. 10. Cholecystectomy. 11. Abdominal aortic aneurysm status post repair. 12. Status post bilateral iliac stent placement. SOCIAL HISTORY: He smoked one half to one pack per day for about 40 years and quit 15 years ago. No TB exposure. No asbestos exposure. He has no history of alcohol or illicit drug use. FAMILY HISTORY: Positive for Alzheimer disease. ALLERGIES: Iodinated contrast. REVIEW OF SYSTEMS: A 10-point review of systems was conducted and the pertinent is listed within the HPI, otherwise noncontributory. PHYSICAL EXAMINATION: Vital Signs: Temperature 98.2 degrees, blood pressure 130/82, pulse 70, respiratory rate 22, oxygen saturation 98% on room air. General: A well- developed male in no acute distress with family at the bedside. HEENT: Atraumatic. Trachea midline. Mucous membranes pink and slightly dry. Respiratory: Chest expansion equal bilaterally. Diminished breathing sounds bibasilarly. Otherwise clear to auscultation. Cardiovascular : Regular rate and rhythm without murmur noted. Gastrointestinal: Normoactive bowel sounds in all 4 quadrants. Nontender. Slightly firm and distended. Extremities: No pedal edema, cyanosis or clubbing. Neurologic: Alert and oriented x3. Speech fluent. Follows commands. IMAGING DATA: Chest x-ray revealed no evidence of pneumothorax status post left thoracentesis. Chest CT without contrast reveals small left pleural effusion, partial atelectasis of the left lower lobe, no pulmonary mass lesion identified on the left; A 2.2 x 3.1- cm moderately thick walled cavitary lesion at the posterior right base; This could be inflammatory or malignant; A few mildly enlarged mediastinal lymph nodes. LABORATORY DATA: White blood cells 6.29, hemoglobin 14.4, hematocrit 38.1, platelet count 220,000. Sodium 133, potassium 4.2, chloride 96, carbon dioxide 24, BUN 20, creatinine 1.9, glucose 181. CK 306, CK-MB 21.62, troponin-T 0.147. ASSESSMENT AND PLAN: This is a 78-year-old male with a significant medical history including ischemic heart disease, essential hypertension, obstructive sleep apnea, gastroesophageal reflux disease, type 2 hbu-wywamlc-akdeisukg diabetes mellitus , anxiety disorder, chronic obstructive pulmonary disease, benign prostatic hyperplasia, chronic renal failure and abdominal aortic aneurysm. He has been admitted with acute respiratory distress and left-sided pleural effusion. 1. Acute respiratory distress, improved. Continue bronchodilators and supplemental oxygen as needed. Follow up with chest x-ray. Check arterial blood gas if indicated. 2. Pleural effusion. The patient had thoracentesis this morning with 1.5 L of serosanguineous fluid aspirated. Current pleural fluid chemistry analysis results indicate an exudate. Follow up with further pleural fluid analysis results. 3. Cavitary lung lesion with exudative pleural effusion. Chest CT revealed a 2.2 x 3.1 cm moderately thick walled cavitary lesion at the posterior right base with a few mildly enlarged mediastinal lymph nodes. It could be inflammatory or malignant. Patient is 78yo with an about 16-jhih-apmn of smoking. FU further pleural fluid analysis and Consider further testing if needed. 4. Obstructive sleep apnea. Continue continuous positive airway pressure. 5. Continue gastrointestinal and deep venous thrombosis prophylaxis. Thank you for the courtesy of this consultation. Dictated by SIMRAN Hughes for Eugene Knowles MD cc: SIMRAN Hughes MD [facility]
[2018-07-13] MEDS: HUMULIN R SUBQ SCH ×4 (06:15→21:42)
[2018-07-13] MEDS: PRILOSEC PO SCH (06:15)
[2018-07-13] MEDS: DUONEB (A & A) INH PRN ×3 (07:37→19:14)
[2018-07-13 08:11] LABS: BASO# 0.01 X1000 (0.0-0.2); BASO% 0.2 % (0.0-0.8); EOS# 0.19 X1000 (0.0-0.7); HEMOGLOBIN 13.4 g/dL (14.0-18.0); LYMPH# 1.58 X1000 (1.2-3.4); LYMPH% 24.6 % (20.5-51.1); MCH 32.5 PG (27-31); MCHC 35.3 g/dL (33-37); MCV 92.2 FL (81-99); MONO# 0.52 X1000 (0.11-0.59); MONO% 8.1 % (1.7-9.3); MPV 9.3 FL (7.4-10.4); NEUT# 4.13 X1000 (1.4-6.5); NEUT% 64.1 % (42.2-75.2); PLT 232 X1000 (130-400); RBC 4.12 XMIL (4.7-6.1); WBC 6.43 X1000 (4.8-10.8)
[2018-07-13 08:39] LABS: CALCIUM 8.6 mg/dL (8.8-10.2); CREATININE 2.1 mg/dL (0.7-1.2); POTASSIUM 3.6 mmol/L (3.5-5.1)
[2018-07-13] MEDS: BYSTOLIC PO SCH (09:09)
[2018-07-13] MEDS: ZOLOFT PO SCH (09:09)
[2018-07-13] MEDS: ULORIC PO SCH (09:09)
[2018-07-13] MEDS: NORVASC PO SCH (09:09)
[2018-07-13] MEDS: LIDODERM TOP SCH (09:10)
--- NOTE | 2018-07-13 16:32 | PROGRESS NOTE ---
DATE: 07/13/2018 Interval history, no acute events. He was able to walk in the hallway without getting short of breath. He is denying chest pain. He states the lidocaine patch at the site of thoracentesis has been helping him lot with the pain. Patient and his are requesting discharge so that can attend a family tomorrow. I discussed with them about the fact that we are still awaiting final pleural fluid culture and final QuantiFERON gold histoplasma antigen and further workup. However they still insisted me to discharge him if possible. I told them that I will await Pulmonology recommendation. VITAL SIGNS: Temperature 97.9 degrees, pulse 84 per minute, blood pressure 149/ 65, saturating 95% on room air. PHYSICAL EXAMINATION: General: Does not appear in acute distress. He has a angiographic tongue. Air entry decreased in left base with some inspiratory crackles otherwise equal bilateral suprascapular region without wheeze or rhonchi. S1, S2 normal. No murmur, rub , or gallop. Abdomen: Soft with firm subcutaneous mass palpable in the epigastric region slit-like about 4 cm in diameter which has been present since many years now. No lower extremity edema. Alert and oriented x3. LAB: Evaluation suggests no leukocytosis, stable hemoglobin, hematocrit, platelet count, hyponatremia, hypochloremia, elevated BUN and creatinine with chronic kidney disease stage 3, glucose showing hyperglycemia. Microbiology, routine culture no growth till date. Pleural fluid Gram stain has not shown any organisms. ASSESSMENT AND PLAN: 1. Acute hypoxic respiratory failure because of left-sided pleural effusion now resolved. He is saturating well on room air. 2. Left-sided pleural effusion status post thoracenteses on July 12 and removal of 1.5 L of serosanguineous fluid, pleural fluid chemistry suggests exudative pathology, echocardiogram has been mostly in acceptable range with ejection fraction of 70% though it was a suboptimal study in general. He also has right lower lobe lung cavitary lesion of about 2.5 cm diameter, followup pleural fluid cytology report to evaluate further if this could be malignant pleural effusion or could be related to fungal or tuberculous infection, pulmonology on board. 3. History of coronary artery disease status post stent in 1998. Echocardiogram suggests no regional wall motion abnormalities. EKG did not have new ST-T changes. Continue home aspirin, ranolazine, pravastatin, nebivolol . 4. Essential hypertension. Continue nebivolol and amlodipine. 5. History of yov-vnbwond-ccgmsdxjl diabetes mellitus. Continue sliding scale insulin, I will increase the dose today. 6. History of gout, continue febuxostat, continue finasteride and tamsulosin for benign prostatic hypertrophy, continue sertraline for depression and lidocaine patch for topical pain relief at the site of thoracentesis with gabapentin. 7. Disposition. According to discussion with Pulmonology on phone the initial plan was to get CT-guided biopsy of his right-sided lower lobe lung lesion however patient and his are requesting discharge so that they can attend a family . I will appreciate Pulmonology recommendation if it could be okay to discharge him and have him follow up outpatient to schedule that biopsy. Plan of care was discussed with and patient. cc: Toy Collins MD MTDD
[2018-07-13] MEDS ORDERED: PRAVACHOL PO SCH (21:00)
[2018-07-13] MEDS: PROSCAR PO SCH (21:42)
[2018-07-13] MEDS: RANEXA PO SCH (21:42)
[2018-07-13] MEDS: FLOMAX PO SCH (21:42)
[2018-07-13] MEDS: NEURONTIN PO SCH (21:42)
[2018-07-13] MEDS: ASPIRIN PO SCH (21:42)
--- NOTE | 2018-07-14 04:23 | PULMONOLOGY PROGRESS NOTE ---
DATE: 07/13/2018 SUBJECTIVE: The patient is awake, alert, and conversant. He reports his breathing has significantly improved following the thoracentesis. He reports he has an acquaintance who has , and he needs to go to the tomorrow in [place]. OBJECTIVE: Vital Signs: The patient has been afebrile for the last 24 hours. Blood pressure 131/64, heart rate 77, respiratory rate 18, oxygen saturation 94%. HEENT: Pupils are equal and reactive. Oropharynx is clear. Neck: Supple. Chest: Reveals diminished breath sounds, left base. Cardiac: S1-S2. Abdomen: Soft, without hepatosplenomegaly. Extremities: Without edema. LABORATORIES: Pleural fluid reveals a protein of 4.1, LDH of 196, amylase 23, pH 8.0, white blood count 1122. Cytology is pending. AFB and fungal stains are negative. No chest x-ray today. IMPRESSION: A 78-year-old with extensive tobacco history, kind of a chronic renal insufficiency, with cavitary lesion in the right lower lobe, and an exudative effusion in the left base. Cytology is pending. Differential diagnosis for both the cavitary lesion and the pleural effusion remains infectious, inflammatory, or malignant. Clinically, he appears to be doing well, and is on room air. RECOMMENDATIONS: 1. Await cytology report. 2. As per Dr. Knowles's note, he may consider biopsy of the cavitary lesion in the right base. 3. From a pulmonary standpoint, the patient could be discharged tomorrow, with followup in Dr. Knowles's office next week, so that the patient can go to his friend's . cc: Francisco Calderon MD
[2018-07-14] MEDS: PRILOSEC PO SCH (06:32)
[2018-07-14] MEDS: HUMULIN R SUBQ SCH (06:33)
[2018-07-14 07:53] LABS: HEMOGLOBIN A1C 6.6 % (4.8-6.0)
[2018-07-14] MEDS: DUONEB (A & A) INH PRN (08:03)
[2018-07-14 08:23] VITALS: BP 124/75
[2018-07-14] MEDS: ZOLOFT PO SCH (08:43)
[2018-07-14] MEDS: NORVASC PO SCH (08:43)
[2018-07-14] MEDS: RANEXA PO SCH (08:43)
[2018-07-14] MEDS: BYSTOLIC PO SCH (08:44)
[2018-07-14] MEDS: NEURONTIN PO SCH (08:44)
[2018-07-14] MEDS: ULORIC PO SCH (08:45)
[2018-07-14] MEDS: LIDODERM TOP SCH (08:45)
[2018-07-14] MEDS ORDERED: CITRACAL + D PO SCH (09:00)
--- NOTE | 2018-07-14 11:39 | Diag Imaging Result Doc PS360 ---
CHEST-1 VIEW - 07/14/2018 INDICATION: abnormal exam COMPARISON: 07/12/2018 FINDINGS: Stable infiltrate and small to moderate effusion at the lateral left lung base. Effusion occupies less than 25%. No new infiltrates. Heart size is grossly normal. IMPRESSION: No change from prior. Electronically signed by Noah Cisneros 07/14/2018 11:37 AM
--- NOTE | 2018-07-15 09:32 | DISCHARGE SUMMARY ---
ADMISSION DATE: 07/11/2018 DISCHARGE DATE: 07/14/2018 DISCHARGE DIAGNOSES: 1. Acute hypoxic respiratory failure because of left-sided pleural effusion. 2. Left-sided pleural effusion, status post thoracentesis, exudative in nature, with differential being inflammatory, malignant or infectious. 3. Right lower lung lobe cavitary lesion of about 2.5 cm in diameter. 4. Elevated carcinoembryonic antigen to 4.1. 5. Elevated troponins, likely in the setting of chronic kidney disease. OTHER DIAGNOSES: 1. History of coronary artery disease, status post stent in 1998. 2. Essential hypertension. 3. Qtj-icpoolf-ghcstrnsg diabetes mellitus. 4. History of gout. 5. History of benign prostatic hypertrophy. 6. History of depression. 7. History of chronic pain. CONSULTATION DURING HOSPITALIZATION: 1. Pulmonology, Eugene Knowles MD. 2. Radiology. Moises Donovan MD. PROCEDURES DURING HOSPITALIZATION: Thoracenteses of left pleural effusion with 1500 mL of serosanguineous fluid aspiration. DISCHARGE MEDICATIONS: No new medications were added. He was discharged on his home medications that includes: Finasteride 5 mg at nighttime, pravastatin 40 mg at nighttime, tamsulosin 0.4 mg at nighttime, amlodipine 5 mg daily, aspirin 81 mg at nighttime, calcium citrate , magnesium oxide, vitamin D3, B6 minerals, 1 tablet in the morning time, dicyclomine 10 mg t.i.d. , febuxostat 80 mg daily, gabapentin 300 mg t.i.d., glimepiride 1 mg in the morning, losartan 25 mg daily, nebivolol 2.5 mg daily, ranolazine 500 mg b.i.d., sertraline 100 mg daily, zolpidem 10 mg at nighttime. VITALS AT THE TIME OF DISCHARGE: Temperature 97.7 degrees, pulse 73, respiratory rate 18, blood pressure 124/75, saturating 95% on room air. PHYSICAL EXAMINATION: General: Does not appear in acute distress. Oral cavity is moist. Lungs: Decreased air entry in left infrascapular region. Adequate air entry on the right hemithorax. No wheeze, rhonchi, or crackles. Cardiovascular: S1, S2 normal. No murmur, rub or gallop. Abdomen: Soft, nontender. Lower Extremities: No edema. Neurologic: Alert, oriented x3. MICROBIOLOGY DURING HOSPITAL ADMISSION: Influenza screen was negative. Blood cultures were negative. Pleural fluid Gram stain did not detect any gram organism. Pleural fluid cultures negative to date. Other reports, such as histoplasma and antigen QuantiFERON gold test, pleural fluid cytology were pending. Carcinoembryonic antigen levels were elevated to 4.1. HOSPITAL COURSE: Mr. Candelaria is a 78-year-old man who presented on July 12 with complaints of worsening shortness of breath for about 1 week duration. He had a fall episode and had sustained injury on his left chest. He had soreness in that area without any obvious bruising. He does take baby aspirin. His workup in the ER was unremarkable, except left-sided pleural effusion. He was admitted and underwent thoracentesis. He tolerated the procedure well. He did not have post thoracentesis complications. Preliminary results of pleural fluid analysis suggested exudative fluid. Considering his previous smoking history, however, he left 15 years ago and cavitary lesion of about 2.5 cm in diameter on the right lower lobe of the lung. The differential for his pleural fluids where infection, inflammation or malignancy. The patient had a family function to attend and wanted to leave before further workup could be done. He was extensively counseled about need to follow up with Dr. Knowles as an outpatient. I discussed about the final pleural fluid results and discussed about need for getting a CT- guided biopsy of right lower lung lesion, which he agreed to. During hospital admission, echocardiogram had detected normal ejection fraction. EKG had detected normal sinus rhythm. TIME SPENT: 30 minutes were spent in discharging the patient. All of his questions have been answered. cc: Toy Collins MD MTDD
== END 2018-07-14 10:19 | disposition home or self-care (01) | DRG 180 ==
LOC: ED 15:30 → SUATTDRO 23:04 → 3N 23:04
PROVIDERS: ATTEND Internal Medicine
CPT/HCPCS: 32421; 32555; 71010; 71020; 71045; 71046; 71250; 80048; 80053; 81001; 82150; 82378; 82550; 82553; 82945; 82948; 83036; 83605; 83615; 83735; 83880; 83986; 84157; 84484; 85025; 85610; 86480; 86698; 87040; 87070; 87102; 87116; 87147; 87205; 87206; 87275; 87276; 87385; 87804; 89051; 93005; 93306; 94640; 94761; 96365; 96366; 99285; A9270; C8929; J1940; J1956; Q9957; S0138; XXXXX

== ENCOUNTER 2018-08-12 00:09 | Inpatient (IN) ==
[2018-08-12 00:50] LABS: BASO# 0.03 X1000 (0.0-0.2); BASO% 0.4 % (0.0-0.8); EOS# 0.34 X1000 (0.0-0.7); EOS% 5.1 % (0.0-10.0); HEMATOCRIT 35.7 % (42.0-52.0); HEMOGLOBIN 12.7 g/dL (14.0-18.0); IMM GRAN# 0.02 X1000 (0.0-0.04); IMM GRAN% 0.3 % (0.0-0.5); LYMPH# 1.82 X1000 (1.2-3.4); LYMPH% 27.1 % (20.5-51.1); MCH 32.2 PG (27-31); MCHC 35.6 g/dL (33-37); MCV 90.4 FL (81-99); MONO# 0.14 X1000 (0.11-0.59); MONO% 2.1 % (1.7-9.3); MPV 9.1 FL (7.4-10.4); NEUT# 4.36 X1000 (1.4-6.5); PLT 368 X1000 (130-400); RBC 3.95 XMIL (4.7-6.1); WBC 6.71 X1000 (4.8-10.8)
[2018-08-12 00:59] LABS: ALB/GLOB RATIO 1.3; ALBUMIN 3.6 g/dL (3.5-5.0); CALCIUM 8.8 mg/dL (8.8-10.2); CREATININE 1.8 mg/dL (0.7-1.2); POTASSIUM 4.6 mmol/L (3.5-5.1); TOTAL BILIRUBIN 0.33 mg/dL (0.20-1.00); TOTAL PROTEIN 6.4 g/dL (6.3-8.3)
--- NOTE | 2018-08-12 03:14 | PROVIDER DOCUMENTATION ---
This chart was entered by Migdalia Crooks Scribe, acting as scribe for Jean Pierre Walker MD. HPI-General Adult - General Chief Complaint: General Adult Stated Complaint: VOMITING Time Seen by Provider: 08/12/18 00:12 Source: patient Allergies/Adverse Reactions: Patient Allergies Allergy/AdvReac Type Severity Reaction Status Date / Time Iodinated Contrast- Oral and AdvReac Unknown Verified 08/12/18 01:52 IV Dye [IV Dye] Home Medications: Home Medication List Medication Instructions Recorded Confirmed Last Taken Type Aspirin 81 mg PO HS 02/13/12 08/12/18 07/31/18 History 81 Finasteride 5 mg PO QHS 02/13/12 08/12/18 08/02/18 22:00 History 5 Tamsulosin HCl [Flomax] 0.4 mg PO QHS 02/13/12 08/12/18 08/02/18 22:00 History 0.4 Sertraline [Zoloft] 100 mg PO DAILY 10/16/14 08/12/18 08/02/18 09:00 History 100 Zolpidem Tartrate [Ambien] 10 mg PO HS PRN 10/16/14 08/12/18 08/02/18 22:00 History 10 Amlodipine Besylate 5 mg PO DAILY 11/28/16 08/12/18 08/03/18 09:00 History 5 Dicyclomine HCl 10 mg PO TID 11/28/16 08/12/18 08/02/18 22:00 History 10 Losartan Potassium 25 mg PO DAILY 11/28/16 08/12/18 08/02/18 09:00 History 25 Ca Citrate/Mgox/Vit D3/B6/Min 1 each PO QAM 07/12/18 08/12/18 08/02/18 09:00 History [Citracal Plus Tablet] 1 Gabapentin 300 mg PO TID 07/12/18 08/12/18 08/02/18 22:00 History 300 Glimepiride 1 mg PO QAM 07/12/18 08/12/18 08/02/18 09:00 History 1 Nebivolol [Bystolic] 2.5 mg PO DAILY 07/12/18 08/12/18 08/03/18 09:00 History 2.5 PRAVAstatin [Pravachol] 40 mg PO QHS 07/12/18 08/12/18 08/02/18 22:00 History 40 Ranolazine [Ranexa] 500 mg PO BID 07/12/18 08/12/18 08/03/18 09:00 History 500 Azelastine 205.5 Mcg Nasal Spr 2 spray MITA DAILY 07/25/18 08/12/18 07/31/18 History [Astepro Nasal [place]] 1 Febuxostat [Uloric] 80 mg PO DAILY 08/01/18 08/12/18 08/02/18 22:00 History 80 - History of Present Illness -Gen Adult Nature of Presenting Problems: Pt is 78/F presenting to ED via EMS, pt has hx of lung cancer and has chest tube, concern that the fluid is not draining from chest cavity. Pt sts that he is having some SOB and needs the fluid drained off. Location of Pain/Injury: reports: none Quality of Pain: reports: none Severity: reports: moderate Onset/Duration: reports: just prior to arrival Timing: reports: still present Context/Activities at Onset: reports: none Modifying Factors: improves with: nothing Review of Systems - Adult - REVIEW OF SYSTEMS - ADULT Constitutional: reports: no symptoms reported Eyes: reports: no symptoms reported Ears, Nose, Mouth & Throat: reports: no symptoms reported Cardiovascular: reports: no symptoms reported Respiratory: reports: see HPI Gastrointestinal: reports: no symptoms reported Genitourinary: reports: no symptoms reported Musculoskeletal: reports: no symptoms reported Integumentary: reports: no symptoms reported Past History - Adult - PAST MEDICAL HISTORY-ADULT Review of Records: reports: Old Records Reviewed Major Childhood Illnesses: reports: denies history Cardiovascular: reports: cardiac disease, aortic disease, CAD, HTN, h yperlipidemia, CT, PAD Respiratory: reports: denies history Gastrointestinal: reports: GERD, obstruction Obstetrical/Gynecological: reports: fibroids Genitourinary: reports: dialysis, kidney disease Musculoskeletal: reports: arthritis Neurological: reports: CVA, stroke deficits Endocrine/Immune: reports: anemia, thyroid disorder Other Conditions: reports: denies history - PRIOR SURGERIES/PROCEDURES Surgical/Procedure History: reports: CABG, other (AAA repair) - IMMUNIZATION STATUS Childhood Immunizations: See Nurse Assessment Flu Vaccine: See Nurse Assessment - FAMILY HISTORY Family History: reviewed, not pertinent Physical Exam-General - PHYSICAL EXAM-ADULT Initial Vital Signs Reviewed: Yes - CONSTITUTIONAL General Appearance: alert, mild distress - EYES Eyes: PERRL/EOMI - HEAD, EARS, NOSE, MOUTH & THROAT HENMT: normocephalic/atraumatic, moist mucous membranes - NECK Neck: non-tender, full range of motion, supple - RESPIRATORY Respiratory: other (Decrease air on the left side). negative: rales, rhonchi, crepitus - CARDIOVASCULAR Cardiovascular: normal peripheral pulses, regular rate, rhythm, no edema - GASTROINTESTINAL (ABDOMEN) Abdominal Exam: normal bowel sounds, non tender, soft Progress - PLAN OF CARE/RESULTS Progress/Plan/Lab Results: Orders Category Date Time Status cxr [CHEST-2 VIEWS] [RAD] Stat Exams 08/12/18 00:13 Ordered CBC WITH ELECTRONIC DIFF [HEME] Stat Lab 08/12/18 00:14 Uncollected CMP [COMPREHENSIVE METABOLIC PANEL] [CHEM] Stat Lab 08/12/18 00:14 Uncollected Patient care, assessment and plan discussed with the attending physician Dr. Dharmesh Kuhn and he agree with the plan as documented. patient also seen by Dr. Kuhn. Result Diagrams: 08/12/18 00:32 08/12/18 00:32 - XRAY 1 XRAY Study: Chest (Large left pleural effusion) - CONSULTS/PCP/HOSPITALIST Notification #1 *Consult/PCP/Hospitalist*: Dr. Garcia Time Discussed: 01:15 Reason/Comments: Pleural Effusion drainage plan Consult Disposition: Admit (admit to hospitalist and Dr. Garcia will see in couple hours.) #2 Consult: Dr. Eitan Gomez Discussed: 01:24 Consult Disposition: Admit (Hx, PE and Dr. Garcia recommendations discussed. accepted.) Departure - Departure Date of Disposition Decision: 08/12/18 Time of Disposition Decision: 01:27 DIAGNOSIS: Pleural effusion on left, SOB (shortness of breath) Lung cancer Qualifiers: Laterality: left Lung location: unspecified part of lung Qualified Code(s): C34.92 - Malignant neoplasm of unspecified part of left bronchus or lung Disposition: ADMITTED INPATIENT 09 Certified Medical Emergency: Emergent Condition: Stable Referrals and Follow-Ups: Bisi Graham MD [Primary Care Provider] - - Critical Care Note This patient required my direct & personal management of CC.: No Attestation - Physician/ CHIQUITA Attestation Patient care was provided by Advanced Practice Provider:: No The physician spent face to face time with patient:: Yes Advanced Practice Provider documentation review:: Supervising physician onsite and consulted in the evaluation and care of this patient. The physician did have a face to face encounter with the patient. This chart was documented by the indicated scribe, (Migdalia Crooks, Jaz) and accurately reflects the services I performed and decisions made by me, Jean Pierre Amezquita MD, as attested by the provider's signature.
--- NOTE | 2018-08-12 05:03 | HISTORY AND PHYSICAL ---
PRIMARY CARE PHYSICIAN: Dr. Graham CHIEF COMPLAINT: Shortness of breath. HISTORY OF PRESENT ILLNESS: This is a 78-year-old male with past medical history of left lung cancer recently diagnosed, who has been seen by Dr. Emilia Wolff, who presented to the emergency department complaining of shortness of breath since yesterday. He had been admitted from July 11 to July 14 for acute respiratory failure with left-sided pleural effusion, turned out to be lung cancer. Since then, he has received 1st dose of chemotherapy, and also because of recurrent pleural effusion, Dr. Cardozo has performed on August 03 an insertion of a left pleural catheter. Everything was doing okay until yesterday, when he noticed some shortness of breath. He suspected that the catheter was not draining. Today around 10 p.m., he notices worsening shortness of breath, so he came to the emergency department and the x- ray shows worsening left pleural effusion. The rest of the workup is negative, so he is going to be admitted for further evaluation and treatment. PAST MEDICAL HISTORY: 1. Left lung cancer, Dr. Emilia Wolff is his primary oncologist. 2. Coronary artery disease status post PCI, Dr. Lauren is his finisher hot strip in the past. 3. Obstructive sleep apnea. 4. Hypertension. 5. Chronic obstructive pulmonary disease. 6. Diabetes mellitus type 2, noninsulin dependent. SURGICAL HISTORY: 1. Placement of left pleural catheter on 08/03/2018. 2. AAA repair. 3. PCI 20 years ago. 4. Laparoscopic cholecystectomy. 5. Bilateral iliac stents. FAMILY HISTORY: Father at 49 years old from motor vehicle accident. ALLERGIES: The patient is allergic to oral and IV dye, iodinated contrast. SOCIAL HISTORY: Patient used to smoke tobacco. The patient denies drinking alcohol or using tobacco. Patient is , lives with . REVIEW OF SYSTEMS: Eleven systems were reviewed, and all symptoms are related to H and P. No night sweats or weight loss reported. PHYSICAL EXAMINATION: Vital signs: Temperature 98.4 degrees, heart rate 74, respiratory 18, blood pressure 140/79, O2 saturation 97% on room air. General: This is a chronically ill-appearing, 78-year-old male lying in bed, in no acute distress. HEENT: Head is normocephalic, atraumatic. Neck: No JVD noted. No carotid bruits. No lymphadenopathy. No thyromegaly. Cardiovascular: S1, S2 heard. No murmurs, gallops, or rubs. Regular rate and rhythm. Respiratory: Clear bilaterally to auscultation in the right lung. In the left lung, there is absent breath sounds with pleural catheter in place. No erythema around it. Abdomen: Soft, nontender to palpation. Bowel sounds present. No organomegaly. Extremities: No clubbing, cyanosis, or edema. Peripheral pulses present in both legs. Neurological: The patient is alert and oriented x3. Moves 4 extremities. LABORATORY DATA: White cell count 6.71, hemoglobin 12.7, hematocrit 35.7, platelets 368,000. Sodium 130, creatinine 1.8. ASSESSMENT AND PLAN: 1. Recurrent left pleural effusion. Patient, despite having a left pleural catheter,started accumulating pleural fluid again. At this time, we are going to consult General surgery furs salesperson to see if this catheter is working or not. Will also order a CT thorax and start IV antibiotics for possible pneumonia. 2. Hypertension. Blood pressure is under control. We will continue with the same management. 3. Chronic kidney disease stage 3. Creatinine is around baseline. We will continue to monitor BMP. 4. Diabetes mellitus type 2. We will check hemoglobin A1c and start sliding scale insulin, as stated. 5. Chronic obstructive pulmonary disease. We will provide breathing treatment as needed. 6. Further recommendations to follow according to clinical situation of the patient. cc: Charlie Gregory MD MTDMya
[2018-08-12] MEDS: ZOSYN 2.25 GM in NS 50 ML IV SCH ×2 (05:40→10:39)
[2018-08-12] MEDS ORDERED: MORPHINE IV PRN (05:59)
[2018-08-12] MEDS ORDERED: AMBIEN PO PRN (05:59)
[2018-08-12] MEDS ORDERED: ZOFRAN IV PRN (05:59)
[2018-08-12] MEDS ORDERED: HEPARIN SUBQ SCH (05:59)
--- NOTE | 2018-08-12 07:13 | GENERAL SURGERY CONSULTATION ---
DATE: 08/12/2018 HISTORY OF PRESENT ILLNESS: This is a 78-year-old gentleman with left lung cancer and malignant effusion known to Dr. Cardozo. He placed a PleurX catheter August 03. This has been functioning well at home and he has had 2 drainage procedures at home, removing 900 mL most recently, last week. He developed worsening shortness of breath this evening with some discomfort in his left chest and he came to the emergency department for further evaluation. Chest x-ray showed a left effusion. MEDICAL HISTORY: Hypertension, BPH, hyperlipidemia, left lung cancer, and diabetes. SURGICAL HISTORY: He has had a left PleurX catheter. REVIEW OF SYSTEMS: Ten point negative. SOCIAL HISTORY: History of tobacco. He has attentive family. PHYSICAL EXAM: Vital signs: Afebrile, temperature 98.4, pulse is in the 70s, blood pressure 120/41, oxygen saturation mid 90s on room air. General: He is alert, no acute distress. HEENT: No scleral icterus. No cervical mass. Cardiovascular: Normal rate. Pulmonary: No increased work of breathing. He has got a left PleurX catheter in place. Abdomen: Soft, nontender, nondistended. Integument: Warm and dry. Psychiatric: Appropriate affect. Neurologic: No gross deficits. Peripheral vascular: No lower extremity edema. LABORATORY DATA: White count 6, hematocrit 35. Creatinine is 1.8, sodium is 130. Glucose 164. LFTs are normal. Albumin is 3.6. IMAGING DATA: I reviewed the chest x-ray. CT scan is pending. ASSESSMENT/PLAN: A 78-year-old gentleman with recurrent left malignant effusion. He has become symptomatic from this. The ER staff attempted to access his PleurX catheter, but there were some issues, some concern of clot and they did not have another vacuum container available. We will admit him for treatment and ruling out possible pneumonia. We will get a CT scan of his chest. I do not see a complication with the catheter, and I suspect that after we drain it, he will feel better. He is not in any respiratory distress right now. I have talked to the hospitalist service about him. We will follow along going forward. I have answered all the patient's and family's questions. cc: Cassy Garcia MD
--- NOTE | 2018-08-12 07:36 | Diag Imaging Result Doc PS360 ---
EXAM: CHEST-PORTABLE 08/12/2018 HISTORY: sob TECHNIQUE: AP portable at 0034 COMMENT: There is a left pleural fluid collection. This may be slightly smaller than on the previous study. There is apparently a drain in place and this is probably loculated. There is still some gas in the left pleural space. The right lung remains clear and is unchanged since the previous study of 08/03/2018. IMPRESSION: Slightly improved loculated pleural effusion on the left. Electronically signed by Ilir Echevarria 08/12/2018 7:33 AM
--- NOTE | 2018-08-12 07:50 | Diag Imaging Result Doc PS360 ---
EXAM: CT THORAX W/O CONTRAST 08/12/2018 HISTORY: Left Pleural Effusion, Lung CA TECHNIQUE: This exam was performed using automated exposure control, adjustment of mA or kV according to patient size, and/or use of iterative reconstruction technique. COMMENT: The current study is compared with the previous examination of 07/12/2018. The volume of loculated pleural fluid on the left has increased since the previous examination despite the presence of a chest tube. There may be considerable pleural implants on the left. This is particularly notable in the upper portion of the major fissure on the left. Nodes in the prevascular space and aorticopulmonary window are actually somewhat diminished in size since the previous study. There is slightly more pleural fluid on the right side with a small loculated gas collection seen posteriorly in the costophrenic sulcus. This was also present at the time the previous study. Overall the right lung is unchanged in appearance. 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 There is right renal atrophy. There has been cholecystectomy. There are granulomata in the spleen. The regional skeleton appears to be stable. IMPRESSION: Worsening loculated malignant pleural effusion on the left. Electronically signed by Ilir Echevarria 08/12/2018 7:47 AM
[2018-08-12] MEDS ORDERED: ZOLOFT PO SCH (09:00)
[2018-08-12] MEDS ORDERED: ULORIC PO SCH (09:00)
[2018-08-12] MEDS ORDERED: ASTEPRO NASAL SPRAY NAS SCH (09:00)
[2018-08-12] MEDS ORDERED: RANEXA PO SCH (09:00)
[2018-08-12] MEDS ORDERED: NEURONTIN PO SCH (09:00)
[2018-08-12] MEDS ORDERED: BYSTOLIC PO SCH (09:00)
[2018-08-12] MEDS ORDERED: PRILOSEC PO SCH (09:00)
[2018-08-12] MEDS ORDERED: BENTYL PO SCH (09:00)
[2018-08-12] MEDS ORDERED: STERILE WATER INJ. INJ ONE (11:58)
[2018-08-12] MEDS ORDERED: CATHFLO INJ ONE (11:58)
[2018-08-12] MEDS ORDERED: SODIUM CHLORIDE 0.9% 10 ML ONE (14:30)
[2018-08-12 15:53] VITALS: BP 121/63
--- NOTE | 2018-08-12 19:08 | DISCHARGE SUMMARY ---
ADMISSION DATE: 08/12/2018 DISCHARGE DATE: 08/12/2018 DISCHARGE DIAGNOSES: 1. Recurrent left pleural effusion, loculated, malignant. 2. Essential hypertension. 3. Chronic kidney disease, stage 3. 4. Diabetes mellitus, type 2. 5. Chronic obstructive pulmonary disease. 6. Malfunction of left-sided pleural fluid catheter, requiring infusion of alteplase, following which the Pleurx catheter opened up. DISCHARGE MEDICATIONS: Finasteride 5 mg at nighttime. Tamsulosin 0.4 mg at nighttime. Pravastatin 40 mg at nighttime. Zolpidem 10 mg at nighttime as required. Aspirin 81 mg at nighttime. Azelastine 205.5 mcg nasal spray 2 spray nasal p.r.n. as required. Nebivolol 2.5 mg daily. Calcium citrate. Magnesium oxide. Vitamins D3, B6. Minerals. Citracal plus tablet, 1 in the morning time. Dicyclomine 10 mg b.i.d. Gabapentin 300 mg t.i.d. Glimepiride 1 mg in the morning time. Losartan 25 mg daily. Ranolazine 100 mg with meals. Febuxostat 80 mg daily. Sertraline 100 mg daily. DISCHARGE PHYSICAL EXAMINATION: Vital signs: At the time of discharge, temperature 97.9 degrees, pulse 63, respiratory rate 16, blood pressure 121/63, saturating 97% on room air. General: The patient does not appear in any acute distress. HEENT: Oral cavity is moist. Lungs: Air entry equal and adequate. Right hemithorax without wheeze rhonchi crackles. Significantly decreased air entry in left infrascapular region with dullness to percussion. Abdomen: Soft, nontender. Extremities: No lower extremity edema. SIGNIFICANT LABORATORIES DURING HOSPITALIZATION: Hemoglobin of 12.7, WBC of 6.7, platelet of 368,000. Sodium of 130, chloride of 95, BUN of 30, creatinine of 1.8. He does have chronic hyponatremia. His glucose was 164. MICROBIOLOGY DURING HOSPITALIZATION: None. IMAGING DURING HOSPITALIZATION: Chest CT on 08/12/2018 had detected worsening loculated malignant pleural effusion on the left. HOSPITAL COURSE SUMMARY: Mr. Candelaria is a 78-year-old man with past medical history of recently diagnosed left lung cancer leading to recurrent left-sided malignant effusion requiring pleural fluid catheter by surgical team, who comes in with complaints of shortness of breath. The diagnosis of recurrent left pleural effusion was leading to dyspnea was made, considering his chest x-ray and chest CT findings. However, during hospital stay, his shortness of breath had significantly improved without any other intervention. Eventually Surgery was consulted. However, the left Pleurx catheter was not functioning properly, and so the pleural fluid could not be drained. The patient had at the time of admission informed that he was getting drained pleural fluid almost twice weekly by home care nurse. The last time it was drained was 4 days prior to presentation when 900 mL were removed. However, on admission in the emergency room, the Pleurx catheter was malfunctioning, and thus, Surgery was consulted. Eventually, alteplase was infused in the Pleurx catheter, following which the Pleurx catheter clot was lysed and started draining and about 750 mL were removed. The patient after removal of the fluid had started getting significantly better, and he has requested to be discharged. I have informed him about following up with the surgeon doctor as an outpatient, considering if the catheter starts malfunctioning again. He has a scheduled chemotherapy session with Dr. Wolff tomorrow. Plan of care discussed with the patient and , who is a surrogate decision maker. All of their questions have been answered. COORDINATION TIME: Less than 30 minutes were spent in discharging this patient. cc: MD YONG Dsouza
[2018-08-12] MEDS ORDERED: PRAVACHOL PO SCH (21:00)
[2018-08-12] MEDS ORDERED: FLOMAX PO SCH (21:00)
[2018-08-12] MEDS ORDERED: PROSCAR PO SCH (21:00)
== END 2018-08-12 17:03 | disposition home or self-care (01) | DRG 920 ==
LOC: ED 00:09 → 4N 03:26 → SUATTDRO 03:26
PROVIDERS: ATTEND Internal Medicine
CPT/HCPCS: 71010; 71045; 71250; 80053; 85025; 99285; A9270; J2543; J2997